=== PATIENT | female | born 1990 ===

== ENCOUNTER 2022-12-24 07:22 | Emergency (ER) | payer MEDICAID ==
[~2022-12-24] VITALS: Ht 172.7 cm; Wt 90.9 kg
[2022-12-24 07:25] VITALS: BP 124/66; PULSE 73; RESP 18; TEMP 98.5
[2022-12-24] MEDS ORDERED: PROPARACAINE HCL 0.5% 15 ML OPHTHALMIC SOLUTION OS ONE (07:45)
[2022-12-24] MEDS ORDERED: FLUORESCEIN SODIUM 1 MG STRIP OS ONE (07:45)
[2022-12-24] MEDS ORDERED: ERYT3.5O8 OD ×2 (07:48→17:05)
== END 2022-12-24 08:00 | disposition home or self-care (01) ==
LOC: EMS 07:22
DX: H10.89 Other conjunctivitis (principal); F17.210 Nicotine dependence, cigarettes, uncomplicated; F12.90 Cannabis use, unspecified, uncomplicated
CPT/HCPCS: 99283